=== PATIENT | male | born 1980 | race Caucasian/White ===

== ENCOUNTER 2022-02-23 06:46 | Day surgery (SDC) | payer OTHER ==
[~2022-02-23 06:46] MED LIST: Lactated Ringers 1,000 ML IV SCH
[2022-02-23] MEDS ORDERED: Propofol 200 MG/20 ML SDV ONE (07:26)
[2022-02-23] MEDS ORDERED: Lidocaine 2% 5 ML SDV ONE (07:26)
[2022-02-23] MEDS ORDERED: fentaNYL 100 MCG/2 ML SDV ONE (07:26)
[2022-02-23 09:11] VITALS: BP 121/73; PULSE 67
== END 2022-02-23 08:50 | disposition home or self-care (01) ==
LOC: MW.SDS 06:46
PROVIDERS: ATTEND Surgery
DX: K29.50 Unspecified chronic gastritis without bleeding (principal); K21.9 Gastro-esophageal reflux disease without esophagitis; E78.00 Pure hypercholesterolemia, unspecified; G43.909 Migraine, unspecified, not intractable, without status migrainosus; Z79.899 Other long term (current) drug therapy; Z87.891 Personal history of nicotine dependence; Z79.82 Long term (current) use of aspirin; Z98.890 Other specified postprocedural states; Z86.73 Personal history of transient ischemic attack (TIA), and cerebral infarction without residual deficits
CPT/HCPCS: 43239; J2704; J3010; J7120; 00731